=== PATIENT | female | born 1965 | race Caucasian/White ===

== ENCOUNTER 2018-03-03 18:56 | Emergency (ER) | payer OTHER ==
[~2018-03-03] VITALS: Ht 162.6 cm; Wt 72.6 kg
[2018-03-03 22:05] VITALS: BP 175/95
[2018-03-04] MEDS ORDERED: HYDROcodone-ACET 10/325MG TAB PO ONE (00:15)
[2018-03-04] MEDS ORDERED: MECLIZINE HCL 25 MG TAB PO ONE (00:15)
[2018-03-04] MEDS ORDERED: ONDANSETRON ODT 4 MG TAB PO ONE (02:00)
[2018-03-04] MEDS ORDERED: PROMETHAZINE HCL 25 MG/ML 1ML ONE (02:53)
[2018-03-04] MEDS ORDERED: PROMETHAZINE HCL 25 MG/ML 1ML IM ONE (03:00)
== END 2018-03-04 02:59 | disposition home or self-care (01) ==
LOC: ER 18:56
DX: S43.402A Unspecified sprain of left shoulder joint, initial encounter (principal); S40.022A Contusion of left upper arm, initial encounter; S60.222A Contusion of left hand, initial encounter; I10 Essential (primary) hypertension; W51.XXXA Accidental striking against or bumped into by another person, initial encounter; Y93.89 Activity, other specified; Y92.89 Other specified places as the place of occurrence of the external cause; Y99.8 Other external cause status
CPT/HCPCS: 73030; 73090; 73130; 96372; 99284; J2550; Q0162

== ENCOUNTER 2024-06-15 17:14 | Inpatient (IN) | payer BC, OTHER ==
[~2024-06-15] VITALS: Ht 193 cm; Wt 70.0 kg
[2024-06-15 19:02] LABS: Basophils # (auto) 0 10 ^3/uL (0-0.2); Basophils % (auto) 0.6 % (0.0-2.0); Eosinophils # (auto) 0.1 10 ^3/uL (0-0.8); Eosinophils % (auto) 1.2 % (0.0-7.0); Hematocrit 43.1 % (36.0-46.0); Hemoglobin 14.9 g/dL (12.2-16.2); Lymphocytes # (auto) 2.3 10 ^3/uL (0.4-5.4); Lymphocytes % (auto) 33.3 % (10.0-50.0); Mean Corpuscular Hemoglobin 30.2 pg (28.0-32.0); Mean Corpuscular Hgb Conc. 34.7 g/dL (32.0-36.0); Mean Corpuscular Volume 87.1 fL (80.0-100.0); Monocytes # (auto) 0.5 10 ^3/uL (0-1.3); Monocytes % (auto) 6.9 % (0.0-12.0); Nucleated Red Blood Cells % 0.1 %; Red Blood Cells 4.95 10^6/uL (4.0-5.20); Red Cell Distribution Width 13.7 % (11.8-14.3); White Blood Cell 6.9 10^3/uL (4.4-10.8)
[2024-06-15 19:12] LABS: Chloride 105 mmol/L (98-107); Potassium 4.3 mmol/L (3.5-5.1); Sodium 141 mmol/L (136-145)
[2024-06-15 19:13] LABS: Anion Gap 9 (5-15); Calcium 10.6 mg/dL (8.7-10.4); Carbon Dioxide 27 mmol/L (20-30)
[2024-06-15 19:18] LABS: BUN/Creatinine Ratio 11.6 (10.0-20.0); Blood Urea Nitrogen 11 mg/dL (9-23); Glucose 113 mg/dL (74-106)
[2024-06-15] MEDS: SODIUM CHLORIDE 0.9% 1,000 ML IV ONE (20:44)
[2024-06-15] MEDS: PROPRANOLOL HCL 20 MG TAB PO ONE (21:22)
[2024-06-15 23:11] LABS: Urine Bacteria None Seen /hpf (None Seen)
[2024-06-15 23:28] LABS: Urine Blood Negative /uL (Negative); Urine Budding Yeast OCCASIONAL /hpf (None Seen); Urine Clarity Clear (Clear); Urine Mucus FEW (None Seen); Urine Protein, UAD Negative (Negative); Urine Specific Gravity 1.009 (1.001-1.035); Urine Urobilinogen Normal (Negative); Urine WBC 6 /hpf (0 - 5)
[2024-06-15 23:45] LABS: Urine Color STRAW (Yellow)
[2024-06-16] VITALS (8 sets, daily range): BP systolic 120–157; BP diastolic 66–85; PULSE 65–97; RESP 16–18; TEMP 97.6–98.3; O2SAT 95–99
[2024-06-16] MEDS ORDERED: ONDANSETRON HCL 4 MG/2 ML VIAL IV PRN (02:45)
[2024-06-16] MEDS ORDERED: ACETAMINOPHEN 325 MG TAB PO PRN (02:45)
[2024-06-16] MEDS ORDERED: hydrALAZINE HCL 20 MG/ML VL IV PRN (02:45)
[2024-06-16] MEDS ORDERED: NITROGLYCERIN 0.4 MG SL TAB SL PRN (02:45)
[2024-06-16] MEDS ORDERED: HYDROcodone-ACET 5/325MG TAB PO PRN (02:45)
[2024-06-16] MEDS ORDERED: MORPHINE SULFATE INJ 2 MG/ml SYRG IV PRN (02:45)
[2024-06-16] MEDS ORDERED: DOCUSATE SOD 100 MG CAP PO PRN (02:45)
[2024-06-16] MEDS ORDERED: DEXTROSE (50%) 50ML SYRG IV PRN (02:45)
[2024-06-16] MEDS: SODIUM CHLORIDE 0.9% 1,000 ML IV SCH (02:58)
[2024-06-16] MEDS: cefTRIAXone 1GM/50ML D5W 50 ML IV ONE (02:58)
[2024-06-16] MEDS: InsuLIN REG 1unit/0.01ml Soln (100units/ml) SC SCH (06:44)
[2024-06-16] MEDS: ACCU-CHEK COMFORT CURVE STRIP VI SCH (06:45)
[2024-06-16] MEDS ORDERED: ROSU10TA16 PO (06:51)
[2024-06-16] MEDS ORDERED: OLME20TA53 PO (06:51)
[2024-06-16] MEDS ORDERED: PROP1TAB53 PO (06:51)
[2024-06-16] MEDS ORDERED: SEMA2INJ3 SC (06:51)
[2024-06-16] MEDS ORDERED: INSU1.2I SC (06:51)
[2024-06-16] MEDS ORDERED: METF-370 PO (06:51)
[2024-06-16 07:06] LABS: Basophils # (auto) 0 10 ^3/uL (0-0.2); Basophils % (auto) 0.4 % (0.0-2.0); Eosinophils # (auto) 0.1 10 ^3/uL (0-0.8); Eosinophils % (auto) 0.9 % (0.0-7.0); Hematocrit 40.4 % (36.0-46.0); Lymphocytes # (auto) 2.2 10 ^3/uL (0.4-5.4); Lymphocytes % (auto) 30.7 % (10.0-50.0); Mean Corpuscular Hemoglobin 30.7 pg (28.0-32.0); Mean Corpuscular Hgb Conc. 34.7 g/dL (32.0-36.0); Mean Corpuscular Volume 88.3 fL (80.0-100.0); Monocytes # (auto) 0.5 10 ^3/uL (0-1.3); Monocytes % (auto) 7.6 % (0.0-12.0); Neutrophils # (auto) 4.4 10 ^3/uL (1.6-8.6); Neutrophils % (auto) 60.4 % (37.0-80.0); Red Blood Cells 4.57 10^6/uL (4.0-5.20); Red Cell Distribution Width 13.9 % (11.8-14.3); White Blood Cell 7.2 10^3/uL (4.4-10.8)
[2024-06-16 07:10] LABS: Alanine Aminotransferase 57 U/L (7-40); Albumin 5.1 g/dL (3.2-4.8); Alkaline Phosphatase 79 U/L (46-116); Anion Gap 9 (5-15); Aspartate Aminotransferase 39 U/L (13-40); BUN/Creatinine Ratio 8.4 (10.0-20.0); Bilirubin, Total 0.8 mg/dL (0.2-1.0); Blood Urea Nitrogen 7 mg/dL (9-23); Calcium 10.3 mg/dL (8.7-10.4); Carbon Dioxide 24 mmol/L (20-30); Chloride 109 mmol/L (98-107); Glucose 124 mg/dL (74-106); Sodium 142 mmol/L (136-145); Total Protein 7.8 g/dL (5.7-8.2)
[2024-06-16] MEDS: METOPROLOL TARTRATE 25 MG TAB PO SCH (10:34)
[2024-06-17 05:00] VITALS: BP 104/59; PULSE 79; RESP 16; TEMP 97.9; O2SAT 98
[2024-06-17 05:45] LABS: Basophils # (auto) 0 10 ^3/uL (0-0.2); Basophils % (auto) 0.5 % (0.0-2.0); Eosinophils # (auto) 0.1 10 ^3/uL (0-0.8); Eosinophils % (auto) 1.4 % (0.0-7.0); Hematocrit 39.9 % (36.0-46.0); Hemoglobin 13.8 g/dL (12.2-16.2); Lymphocytes # (auto) 2.8 10 ^3/uL (0.4-5.4); Lymphocytes % (auto) 41.5 % (10.0-50.0); Mean Corpuscular Hemoglobin 30.5 pg (28.0-32.0); Mean Corpuscular Hgb Conc. 34.5 g/dL (32.0-36.0); Mean Corpuscular Volume 88.4 fL (80.0-100.0); Monocytes # (auto) 0.6 10 ^3/uL (0-1.3); Monocytes % (auto) 9.1 % (0.0-12.0); Neutrophils # (auto) 3.2 10 ^3/uL (1.6-8.6); Neutrophils % (auto) 47.5 % (37.0-80.0); Red Blood Cells 4.51 10^6/uL (4.0-5.20); Red Cell Distribution Width 14.1 % (11.8-14.3); White Blood Cell 6.6 10^3/uL (4.4-10.8)
[2024-06-17 06:07] LABS: Alanine Aminotransferase 62 U/L (7-40); Alkaline Phosphatase 66 U/L (46-116); Anion Gap 7 (5-15); Aspartate Aminotransferase 48 U/L (13-40); BUN/Creatinine Ratio 11.6 (10.0-20.0); Blood Urea Nitrogen 10 mg/dL (9-23); Carbon Dioxide 27 mmol/L (20-30); Chloride 106 mmol/L (98-107); Glucose 95 mg/dL (74-106); Sodium 140 mmol/L (136-145)
[2024-06-17 06:08] LABS: Albumin 4.7 g/dL (3.2-4.8)
[2024-06-17 06:09] LABS: Bilirubin, Total 0.9 mg/dL (0.2-1.0); Total Protein 7.4 g/dL (5.7-8.2)
[2024-06-17 08:00] VITALS: PULSE 75; PULSE 85; RESP 17
[2024-06-17 08:48] VITALS: BP 133/73; PULSE 85; RESP 17; TEMP 97.5; O2SAT 100
[2024-06-17] MEDS: cefTRIAXone 1GM/50ML D5W 50 ML IV SCH (09:19)
[2024-06-17 13:00] VITALS: BP 125/71; PULSE 91; RESP 18; TEMP 98.2; O2SAT 96
[2024-06-17 16:27] VITALS: BP 125/71; PULSE 91; TEMP 36.8
[2024-06-17 16:58] VITALS: BP_SYST 133; BP_SYST 164; BP_DIAS 84; BP_DIAS 88; PULSE 91; RESP 17; TEMP 97.9; O2SAT 98
== END 2024-06-17 17:00 | disposition home or self-care (01) | DRG 638 ==
LOC: ER 17:14 → TELE 06-16 02:38 → TELE-WESTW 06-16 04:20
PROVIDERS: ADMIT Internal Medicine; ATTEND Internal Medicine
DX: E11.649 Type 2 diabetes mellitus with hypoglycemia without coma (principal); N39.0 Urinary tract infection, site not specified; I10 Essential (primary) hypertension; E78.5 Hyperlipidemia, unspecified; R20.2 Paresthesia of skin
CPT/HCPCS: 36415; 70450; 71046; 80048; 80053; 81001; 82962; 83036; 84484; 85025; 87086; G0378; J1815